=== PATIENT | male | born 1955 | race Caucasian/White ===

== ENCOUNTER → 2017-05-21 | Outpatient (CLI) | payer MEDICARE | LOC: HEART 5 05-02 11:00 | DX: I50.22 Chronic systolic (congestive) heart failure (principal); I42.0 Dilated cardiomyopathy; I51.7 Cardiomegaly; I34.0 Nonrheumatic mitral (valve) insufficiency | CPT/HCPCS: 93306 ==

== ENCOUNTER → 2017-05-28 | Outpatient (CLI) | payer MEDICARE ==
[2017-05-28 11:21] LABS: BUN/CREATININE RATIO 21 (0-10)
== END ==
LOC: LAB 10:23
PROVIDERS: Internal Medicine Cardiovascular Disease
DX: I11.0 Hypertensive heart disease with heart failure (principal); I50.22 Chronic systolic (congestive) heart failure; I42.0 Dilated cardiomyopathy; M06.9 Rheumatoid arthritis, unspecified; I47.1 Supraventricular tachycardia
CPT/HCPCS: 36415; 80048; 80076

== ENCOUNTER → 2021-02-28 | Outpatient (CLI) | payer MEDICARE ==
[~2021-02-28] MED LIST: AMLODIPINE BESYL5 MG PO; CLINDAMYCIN HC300 MG PO; ENBREL25 MG/0.5 SQ; FOLIC ACID 1 MG1 MG PO; HYDROCODON-ACE1 EAC4 PO; LEVOFLOXACIN500 MG PO; LOPRESSOR 50 MG50 MG PO; PREDNISONE10 MG PO; TIZANIDINE HCL2 MG PO; ZYLOPRIM 300 M300 MG PO
== END ==
LOC: HEART 5 09:29 → ECHO 03-05 12:00 → HEART 5 03-19 09:30
DX: I47.1 Supraventricular tachycardia (principal); R55 Syncope and collapse

== ENCOUNTER → 2021-03-05 | Outpatient (CLI) | payer MEDICARE | LOC: ECHO 12:00 | DX: I50.22 Chronic systolic (congestive) heart failure (principal); I42.0 Dilated cardiomyopathy; I51.7 Cardiomegaly; I34.0 Nonrheumatic mitral (valve) insufficiency; R93.1 Abnormal findings on diagnostic imaging of heart and coronary circulation | CPT/HCPCS: ECHO; 93306 ==

== ENCOUNTER → 2021-04-18 | Outpatient (CLI) | payer MEDICARE ==
[2021-04-18 10:36] LABS: HEMOGLOBIN 15.7 gm/dl (14.0-17.5); RED BLOOD COUNT 5.07 M/UL (4.20-5.50); WHITE BLOOD COUNT 8.4 K/UL (4.5-11.0)
[2021-04-18 10:58] LABS: BUN/CREATININE RATIO 18 (0-10)
== END ==
LOC: LAB 09:47
PROVIDERS: Internal Medicine Cardiovascular Disease
DX: I50.22 Chronic systolic (congestive) heart failure (principal); I47.2 Ventricular tachycardia; I42.0 Dilated cardiomyopathy; R55 Syncope and collapse
CPT/HCPCS: 36415; 71046; 80048; 85025

== ENCOUNTER 2021-04-20 10:21 | Outpatient (CLI) | payer MEDICARE ==
[~2021-04-20] VITALS: Ht 182.9 cm; Wt 97.6 kg
[2021-04-20] MEDS ORDERED: FOLIC ACID 1 MG1 MG PO (12:10)
[2021-04-20] MEDS ORDERED: AMLODIPINE BESYL5 MG PO (12:10)
[2021-04-20] MEDS ORDERED: LOPRESSOR 50 MG50 MG PO (12:18)
[2021-04-20] MEDS ORDERED: PREDNISONE10 MG PO (12:18)
[2021-04-20] MEDS ORDERED: TIZANIDINE HCL2 MG PO (12:19)
[2021-04-20] MEDS ORDERED: ZYLOPRIM 300 M300 MG PO (12:19)
[2021-04-20] MEDS ORDERED: ENBREL25 MG/0.5 SQ (12:30)
[2021-04-20] MEDS ORDERED: LEVOFLOXACIN500 MG PO (15:31)
[2021-04-20] MEDS ORDERED: HYDROCODON-ACE1 EAC4 PO (15:31)
[2021-04-20] MEDS ORDERED: CLINDAMYCIN HC300 MG PO (15:31)
== END 2021-04-21 10:46 | disposition home or self-care (01) ==
LOC: CATH 10:21 → PROG CARE 16:39 → CATH 04-21 10:46
PROC: 0JH608Z Insertion of Defibrillator Generator into Chest Subcutaneous Tissue and Fascia, Open Approach (ICD-10-PCS; principal; 2021-04-20)
PROC: 02H63KZ Insertion of Defibrillator Lead into Right Atrium, Percutaneous Approach (ICD-10-PCS; 2021-04-20)
PROC: 02HK3KZ Insertion of Defibrillator Lead into Right Ventricle, Percutaneous Approach (ICD-10-PCS; 2021-04-20)
PROC: 4B02XTZ Measurement of Cardiac Defibrillator, External Approach (ICD-10-PCS; 2021-04-20)
DX: I42.0 Dilated cardiomyopathy (principal); I11.0 Hypertensive heart disease with heart failure; I50.22 Chronic systolic (congestive) heart failure; I47.2 Ventricular tachycardia; I49.5 Sick sinus syndrome; I45.89 Other specified conduction disorders; I47.1 Supraventricular tachycardia; J44.9 Chronic obstructive pulmonary disease, unspecified; E78.00 Pure hypercholesterolemia, unspecified; E78.2 Mixed hyperlipidemia; Z82.49 Family history of ischemic heart disease and other diseases of the circulatory system; F17.210 Nicotine dependence, cigarettes, uncomplicated; Z79.899 Other long term (current) drug therapy
CPT/HCPCS: 33249; 71045; 93620; 93641; 99152; 99153; C1721; C1730; C1766; C1895; C1898; J1200; J1644; J2250; J2270; J3010; J3370; J7030; J7040; J7050; J7070

== ENCOUNTER → 2022-01-24 | Outpatient (CLI) | payer MEDICARE | LOC: EXRD 13:14 | DX: M25.512 Pain in left shoulder (principal); M25.511 Pain in right shoulder; M25.551 Pain in right hip; M25.552 Pain in left hip; M16.0 Bilateral primary osteoarthritis of hip; M43.8X6 Other specified deforming dorsopathies, lumbar region; M51.36 Other intervertebral disc degeneration, lumbar region; M50.322 Other cervical disc degeneration at C5-C6 level; M85.88 Other specified disorders of bone density and structure, other site; M19.012 Primary osteoarthritis, left shoulder; M19.011 Primary osteoarthritis, right shoulder | CPT/HCPCS: 72040; 72100; 73030; 73522 ==

== ENCOUNTER → 2022-01-28 | Outpatient (CLI) | payer MEDICARE | LOC: KOH-I 11:30 | DX: F17.210 Nicotine dependence, cigarettes, uncomplicated (principal); R91.8 Other nonspecific abnormal finding of lung field | CPT/HCPCS: 71271 ==

== ENCOUNTER 2022-02-17 10:55 | Inpatient (IN) | payer MEDICARE ==
[~2022-02-17] VITALS: Ht 182.9 cm; Wt 87.1 kg
[2022-02-17 11:21] LABS: HEMOGLOBIN 14.5 gm/dl (14.0-17.5); RED BLOOD COUNT 4.96 M/UL (4.20-5.50); WHITE BLOOD COUNT 11.2 K/UL (4.5-11.0)
[2022-02-17 11:43] LABS: BUN/CREATININE RATIO 39 (0-10)
[2022-02-17] MEDS ORDERED: CYMBALTA 30 MG30 MG PO (14:36)
[2022-02-17] MEDS ORDERED: FAMOTIDINE40 MG PO (14:37)
[2022-02-17] MEDS ORDERED: TIZANIDINE HCL2 MG PO (14:37)
[2022-02-17] MEDS ORDERED: HYDROCODON-ACE1 EAC2 PO (14:38)
[2022-02-17] MEDS ORDERED: METOPROLOL TART50 MG PO (14:38)
[2022-02-17] MEDS ORDERED: OMEPRAZOLE20 MG PO (14:39)
[2022-02-18 05:09] LABS: RED BLOOD COUNT 4.53 M/UL (4.20-5.50); WHITE BLOOD COUNT 11.7 K/UL (4.5-11.0)
[2022-02-18 06:00] LABS: BUN/CREATININE RATIO 34 (0-10)
--- NOTE | 2022-02-18 08:26 | NUR ---
[facility] NOTIFIED FOR ICD INTERROGATION.
--- NOTE | 2022-02-18 20:48 | NUR ---
PTS HEART RATE IS RISING ON AND OFF TO 160'S. CALLED DR ESPAÑA TO NOTIFY HER OF RESULTS. ORDERS TO GIVE PM DOSE OF METOPROLOL.
[2022-02-19 02:09] LABS: HEMOGLOBIN 11.9 gm/dl (14.0-17.5); RED BLOOD COUNT 4.1 M/UL (4.20-5.50); WHITE BLOOD COUNT 10.3 K/UL (4.5-11.0)
[2022-02-19 02:34] LABS: BUN/CREATININE RATIO 41 (0-10)
[2022-02-20 02:19] LABS: HEMOGLOBIN 11.5 gm/dl (14.0-17.5); RED BLOOD COUNT 3.99 M/UL (4.20-5.50); WHITE BLOOD COUNT 8.6 K/UL (4.5-11.0)
[2022-02-20 03:06] LABS: BUN/CREATININE RATIO 38 (0-10)
[2022-02-20] MEDS ORDERED: ELIQUIS 5 MG TAB5 MG PO (11:27)
[2022-02-20] MEDS ORDERED: AMIODARONE HCL200 MG PO ×2 (11:27)
[2022-02-20] MEDS ORDERED: LISINOPRIL5 MG PO (11:27)
== END 2022-02-20 14:12 | disposition home or self-care (01) | DRG 309 ==
LOC: ER1 10:55 → PROG CARE 13:40 → CDU 13:40 → PROG CARE 15:50
PROVIDERS: Emergency Medicine; Internal Medicine; Physician Assistant Medical; ADMIT Internal Medicine
PROC: B24BZZZ Ultrasonography of Heart with Aorta (ICD-10-PCS; principal; 2022-02-18)
DX: I48.91 Unspecified atrial fibrillation (principal); I50.22 Chronic systolic (congestive) heart failure; I42.8 Other cardiomyopathies; I11.0 Hypertensive heart disease with heart failure; Z20.822 Contact with and (suspected) exposure to COVID-19; M06.9 Rheumatoid arthritis, unspecified; I47.1 Supraventricular tachycardia; M10.9 Gout, unspecified; K21.9 Gastro-esophageal reflux disease without esophagitis; E86.0 Dehydration; I08.1 Rheumatic disorders of both mitral and tricuspid valves; F17.210 Nicotine dependence, cigarettes, uncomplicated; I47.2 Ventricular tachycardia; Z95.810 Presence of automatic (implantable) cardiac defibrillator; Z82.49 Family history of ischemic heart disease and other diseases of the circulatory system; Z82.5 Family history of asthma and other chronic lower respiratory diseases
CPT/HCPCS: ECHO; 0241U; 36415; 71045; 80048; 80053; 81001; 82550; 82553; 83605; 83735; 83880; 84100; 84439; 84443; 84484; 85025; 85027; 85610; 85730; 87040; 87086; 93005; 93306; 94640; 94664; 94760; 96374; 96375; 96376; 97116-GP-CQ; 97162; 97530; 99285; G0378; J1644; J2270; J2543

== ENCOUNTER → 2022-04-25 | Outpatient (CLI) | payer MEDICARE ==
[~2022-04-25] MED LIST changes: +AMIODARONE HCL200 MG PO; +B-121000 MCG PO; +CYMBALTA 30 MG30 MG PO; +ELIQUIS 5 MG TAB5 MG PO; +FAMOTIDINE40 MG PO; +FOLIC ACID1 MG PO; +HYDROCODON-ACE1 EAC2 PO; +LASIX20 MG PO; +LISINOPRIL5 MG PO; +METHOTREXA25 MG/1 M6 SC; +METHOTREXA25 MG/1 ML SC; +METOPROLOL TART50 MG PO; +NORVASC5 MG PO; +OMEPRAZOLE20 MG PO
== END ==
LOC: HEART 5 09:21
DX: R06.02 Shortness of breath (principal); Z79.899 Other long term (current) drug therapy; Z12.11 Encounter for screening for malignant neoplasm of colon
CPT/HCPCS: 94060; 94729